=== PATIENT | male | born 1980 | race Two or more races ===

== ENCOUNTER 2025-04-30 15:29 | Emergency (ER) | payer MEDICAID, SELFPAY ==
[2025-04-30 15:58] VITALS: BP 126/77; PULSE 70; RESP 18; TEMP 37.2; O2SAT 96; BMI 31.1
--- NOTE | 2025-04-30 16:14 | PD.EDRME ---
Rapid Medical Screening Exam E Arrival date/time: 04/30/25 15:29 44-year-old male with no known medical history presents to the emergency room with a chief complaint of bright red stool x 3 days I have greeted and performed a focused initial assessment of this patient. A comprehensive ED assessment and evaluation of the patient, analysis of all test results, and completion of the medical decision making process will be conducted by additional ED providers. Chief Complaint: GI Bleed Vital signs: Vital Signs Temperature 98.9 F 04/30/25 15:58 Pulse Rate 70 04/30/25 15:58 Respiratory Rate 18 04/30/25 15:58 Blood Pressure 126/77 04/30/25 15:58 Pulse Oximetry (%) 96 04/30/25 15:58 Oxygen Delivery Method Room Air 04/30/25 15:58 Vital signs reviewed by provider: Yes Exam: Soft nontender abdomen Clear bilateral lung sounds Clinical Impression: Upper GI bleed/lower GI bleed
[2025-04-30 17:06] LABS: Collection Type, Urine Clean Catch
[2025-04-30 17:13] LABS: Basophils # (Auto) 0.0 Thou/mm3 (0.0-0.2); Basophils % (Auto) 0 % (0-2.5); Eosinophils # (Auto) 0.3 Thou/mm3 (0.0-0.5); Eosinophils % (Auto) 2 % (0-10); Hematocrit 46.0 % (41.0-53.0); Hemoglobin 15.7 g/dL (13.5-16.0); Immature Granulocytes Auto 0.06 Thou/mm3 (0.00-0.00); Lymphocytes # (Auto) 1.9 Thou/mm3 (1.0-4.8); Lymphocytes % (Auto) 14 % (10-50); Mean Corpuscular HGB Conc 34.1 g/dl (31.0-37.0); Mean Corpuscular Hemoglobin 31.7 pg (25.0-35.0); Mean Corpuscular Volume 93 fL (80-100); Monocytes # (Auto) 0.7 Thou/mm3 (0.0-0.8); Monocytes % (Auto) 5 % (0-12); Neutrophils # (Auto) 10.5 Thou/mm3 (1.8-7.7); Neutrophils % (Auto) 79 % (37-80); Nucleated Red Blood Cell # 0.00 Thou/mm3 (0.00-0.00); Nucleated Red Blood Cell % 0 /100 WBC (0); Platelet Count 196 Thou/mm3 (140-440); RDW Standard Deviation 42.6 fL (35.1-43.9); Red Blood Count 4.96 Miln/mm3 (4.50-5.90); White Blood Count 13.4 Thou/mm3 (3.8-10.6)
[2025-04-30 17:24] LABS: Bilirubin,Urine Negative (Negative); Blood,Urine Negative (Negative); Clarity,Urine Clear (Clear/Hazy); Color,Urine Colorless (Lt Yel-Yel); Glucose, Urine Negative (Negative); Ketones,Urine Negative (Negative); Leukocyte Esterase,Urine Positive (Negative); Nitrite,Urine Negative (Negative); PH,Urine 6.5 (5.0-7.0); Protein,Urine Negative (Neg - Trace); RBC,Urine 7 /hpf (0-3); Specific Gravity,Urine 1.011 (1.001-1.035); Squamous Epithelial Cell,Urine < 1 /hpf (0-5); Urobilinogen,Urine Negative mg/dL (0.0-1.0); WBC,Urine 53 /hpf (0-5)
[2025-04-30 17:27] LABS: Culture Indicated,Urine Yes
[2025-04-30 17:30] LABS: INR 1.0 (0.9-1.3); Partial Thromboplastin Time 26.0 Seconds (22.0-36.0); Prothrombin Time 10.3 Seconds (9.0-12.2)
[2025-04-30 17:32] LABS: Alanine Aminotransferase 27 U/L (10-49); Albumin, Serum 4.7 gm/dL (3.5-5.0); Albumin/Globulin Ratio 1.7 (1.2-2.2); Alkaline Phosphatase 77 U/L (46-116); Anion Gap 9 (7-16); Aspartate Amino Transferase 19 U/L (0-34); BUN/Creatinine Ratio 13 Ratio (12-20); Bilirubin,Total 0.5 mg/dL (0.3-1.2); Blood Urea Nitrogen 16 mg/dL (9-23); Calcium 9.0 mg/dL (8.3-10.6); Calcium (Corrected) 9.0 mg/dL (8.5-10.1); Carbon Dioxide 28.8 mMol/L (20.0-31.0); Chloride 104 mMol/L (98-107); Creatinine (Component) 1.2 mg/dL (0.6-1.3); Estimated Creatinine Clearance 97.1 mL/min (>60); Globulin 2.7 gm/dL (2.3-3.5); Glucose 85 mg/dL (74-106); Osmolality,Calculated 283 (275-295); Potassium 3.6 mMol/L (3.4-5.1); Sodium 142 mMol/L (136-145); Total Protein 7.4 gm/dL (5.7-8.2); eGFR > 60 See Note
[2025-04-30 19:12] VITALS: BP 123/76; PULSE 80; RESP 16; TEMP 37; O2SAT 98
--- NOTE | 2025-04-30 19:19 | PD.EDGIBLD ---
ED GI Bleed RME/HPI General Chief complaint: GI Bleed Stated complaint: BLOODY STOOL Time Seen by Provider: 04/30/25 18:23 Arrival date/time: 04/30/25 15:29 RME / HPI RME / HPI Narrative: 44-year-old male patient with no past medical history, came in for evaluation regarding on and off but red blood per rectum has been ongoing for several months, however for the last 2 to 3 days he noticed it almost on a daily basis. Patient denies any abdominal pain denies any vomiting denies any dizziness. Also complained of dysuria started today. Already seen by PCP, and waiting to be seen by GI specialist. Denies any other complaints not taking any blood thinner. Exam: Soft nontender abdomen Clear bilateral lung sounds Impression: Upper GI bleed/lower GI bleed Related Data Previous Rx's ?Medication ?Instructions ?Recorded Hydrocodone/Acetaminophen * (NORCO 1 tab PO Q6H PRN ABDOMINAL PAIN 05/07/16 7.5/325 *) #30 tabs cephalexin 500 mg capsule 500 mg PO TID 7 days #21 caps 04/30/25 hydrocortisone 100 mg/60 mL enema 100 mg (60 mL) MA BID 7 days #840 04/30/25 mL Allergies Allergy/AdvReac Type Severity Reaction Status Date / Time NKA* Allergy Uncoded 04/30/25 15:33 Review of Systems Review of Systems Narrative Review of Systems: Review of system reviewed and within normal limits except mentioned in HPI ED Exam Narrative Physical exam: VITAL SIGNS: Reviewed. GENERAL APPEARANCE: Alert and interactive, follows commands, no acute distress, HEAD AND FACE: Non-traumatic. ENT: PERRL, pink conjunctivitis, eyelid no trauma, Mucous membrane moist. NECK: Supple, nontender, no nuchal rigidity. CHEST: No tenderness, no crepitus, no paradoxical movement, no retractions. LUNGS: Clear, well ventilated, symmetric, no rales, no wheezing, no ronchi, no stridor, good breath sounds bilaterally. HEART: Regular rate, regular rhythm, no murmur, no gallops. ABDOMEN: Soft, positive bowel sounds, nondistended, no guarding, nontender, no rebound, no masses, RECTAL: Deferred. GENITAL: Deferred. NEUROLOGICAL: Gross motor function intact sensory function intact, Appropriate for age. MUSCULOSKELETAL: low back nontender, full range of motion. EXTREMITIES: Nontender, full range of motion. SKIN: Color pink, dry, no rash, no lacerations, no abrasions, no contusions. LYMPHATICS: Deferred. Course Quality Measures none Orders Category Date Time Status CBC Stat Lab 04/30/25 16:35 Completed CMP [Comprehensive Metabolic Panel] Stat Lab 04/30/25 16:35 Completed PT [Prothrombin Time with INR] Stat Lab 04/30/25 16:35 Completed PTT [Partial Thromboplastin Time] Stat Lab 04/30/25 16:35 Completed Type and Screen Stat Lab 04/30/25 16:35 Completed UA, C/S IF [Urinalysis, C/S if Indicated] Stat Lab 04/30/25 16:46 Completed Urine Culture Stat Lab 04/30/25 16:46 Received Vital Signs Vital signs: Vital Signs Temperature 98.9 F 04/30/25 15:58 Pulse Rate 70 04/30/25 15:58 Respiratory Rate 18 04/30/25 15:58 Blood Pressure 126/77 04/30/25 15:58 Pulse Oximetry (%) 96 04/30/25 15:58 Oxygen Delivery Method Room Air 04/30/25 15:58 GI Bleed MDM Narrative MDM Narrative:: 44-year-old male patient with no past medical history, came in for evaluation regarding on and off but red blood per rectum has been ongoing for several months, however for the last 2 to 3 days he noticed it almost on a daily basis. Patient denies any abdominal pain denies any vomiting denies any dizziness. Also complained of dysuria started today. Already seen by PCP, and waiting to be seen by GI specialist. Denies any other complaints not taking any blood thinner. Patient denies any rectal pain. Patient reports workup is significant for UTI. There is no sign of anemia at this time. CMP unremarkable. Patient was advised to closely follow-up with GI specialist for outpatient colonoscopy. Patient stable for discharge home. Patient was given Keflex and I will send him home on hydrocortisone enema also. Patient data External records reviewed:: None Clinical information provided by:: patient and family Social determinants that could affect healthcare access:: none Patient has the following chronic illnesses:: None How is presenting disease/condition affected by chronic disease/condition?: no chronic disease Evaluation data The following diagnostics were reviewed and interpreted by me:: lab results Lab and/or radiology exams considered but not ordered:: None Interpretation Summary: See above Medications / Prescriptions Medications or Prescriptions considered but not ordered:: None Medication administrations:: Keflex Consultations Consultation(s) initiated? (list below): No Diagnosis GI bleed differential diagnosis: hemorrhoids, Lori-Boykin syndrome, Lower gastrointestinal hemorrhage and hematochezia Most likely diagnosis given after review of the tests above:: UTI, bright red blood per rectum Admission Indicated Admission indicated?: not indicated Admission Request Was there a request for admission?: No Disposition Plan Disposition Plan: Discharge Discharge Attestation Discharge Attestation: The patient and all family members were given an opportunity to ask questions and understood the discharge instructions. Discharge instructions specifically effects, indications for sooner follow up or return to the emergency department, and the expected course of current diagnosis. Patient condition: Stable Discharge Plan Plan Patient Disposition: HOME (Self Care) Discharge Disposition comment: Stable Prescriptions/Referrals Prescriptions/Med Rec: New cephalexin 500 mg capsule 500 mg PO TID 7 Days Qty: 21 0RF hydrocortisone 100 mg/60 mL enema 100 mg MA BID 7 Days Qty: 840 0RF No Action Hydrocodone/Acetaminophen * (NORCO 7.5/325 *) 1 TAB tablet 1 tab PO Q6H PRN (Reason: ABDOMINAL PAIN) Qty: 30 0RF Referrals: Lucrecia Clark MD [Primary Care Provider] - In 1 week Problem List Clinical Impression: Bright red blood per rectum, UTI (urinary tract infection) Patient/Caregiver Discharge Instructions Discharge Activity: activity as tolerated Education Materials: Bleeding Rectal Evaluate Treat Additional Instructions: Thank you for the opportunity for serving you today. You are stable for discharged . You are advised to: Follow-up with your PCP in 1 to 2 days Return to ED for worsening of symptoms Increase oral fluids Take medication as prescribed Follow-up with your GI specialist as instructed for outpatient colonoscopy. Print Language: [employer] Stand Alone Forms: Comfort Award Info., Patient Portal Info Letter PA/[employer] Supervising Physician MINNA/TONI Supervising Physician: MD Caryn
== END 2025-04-30 19:51 | disposition home or self-care (01) ==
PROVIDERS: Nurse Practitioner Family; Emergency Provider Emergency Medicine; PCP Obstetrics & Gynecology
DX: K92.1 Melena (principal); N39.0 Urinary tract infection, site not specified
CPT/HCPCS: 36415; 80053; 81001; 85025; 85610; 85730; 86850; 86900; 86901; 87077; 87086; 87186; 99282; A9270